=== PATIENT | female | born 1975 | race African-American/Black ===

== ENCOUNTER 2018-12-22 18:34 | Emergency (ER) | payer OTHER ==
[~2018-12-22] VITALS: Ht 165.1 cm; Wt 99.8 kg
--- NOTE | 2018-12-22 19:13 | NUR ---
ED Nurse Note: Patient walked in to ER c/o leftknee pain 12/16. Stated that fell today from tghe chair. AAO x4, VSS at this time, skin is dry warm to touch. Patient presented limping.
[2018-12-22] MEDS ORDERED: Ketorolac 30mg Inj IM ONE (19:15)
--- NOTE | 2018-12-22 19:54 | Emergency Room Report ---
History of Present Illness General Chief Complaint: Lower Extremity Injury Source: Patient Present Illness HPI 43-year-old female with no significant past medical history here complaining of a 10 out of 10 pain in left knee after a fall today. Patient reports that she fell on her left knee. Denies pain radiation. Denies tingling or numbness, has not taken medication for pain. Patient is morbidly obese. Denies calf tenderness, chest pain, shortness of breath, palpitation, and other associated symptoms. Denies other injuries and denies head injury and loss of consciousness. Allergies: Coded Allergies: No Known Allergies (Unverified , 12/22/18) Patient History Past Medical History: see triage record Past Surgical History: unable to obtain Pertinent Family History: none Last Menstrual Period: last month Now: No Immunizations: UTD Reviewed Nursing Documentation: PMH: Agreed; PSxH: Agreed Nursing Documentation-PMH Past Medical History: No Stated History Review of Systems All Other Systems: negative except mentioned in HPI Physical Exam Vital Signs Date Time Temp Pulse Resp B/P (MAP) Pulse Ox O2 Delivery O2 Flow Rate FiO2 12/22/18 18:50 98.8 98 20 111/67 (82) 96 Room Air Sp02 EP Interpretation: reviewed, normal General Appearance: no apparent distress, alert, GCS 15, non-toxic Head: normocephalic, atraumatic Eyes: bilateral eye normal inspection, bilateral eye PERRL ENT: hearing grossly normal, normal pharynx, no angioedema, normal voice Neck: full range of motion, supple/symm/no masses Respiratory: chest non-tender, lungs clear, normal breath sounds, speaking full sentences Cardiovascular #1: regular rate, rhythm, no edema, no murmur Cardiovascular #2: 2+ dorsalis pedis (R), 2+ dorsalis pedis (L) Gastrointestinal: normal inspection, normal bowel sounds Musculoskeletal: back normal, digits/nails normal, gait/station normal, non- tender, no calf tenderness, swelling - Left lateral knee Neurologic: alert, oriented x3, responsive, motor strength/tone normal, sensory intact, speech normal Psychiatric: judgement/insight normal, memory normal, mood/affect normal, no suicidal/homicidal ideation Skin: no rash Lymphatic: no adenopathy Procedures Splinting Splinting : Consent: Verbal Location: Left knee Pre-Made Type: knee immobilizer Pre-Proc Neuro Vasc Exam: normal Post-Proc Neuro Vasc Exam: normal Patient Tolerated: Well Complications: None Medical Decision Making PA Attestation All my diagnosis and treatment plans were reviewed ad discussed with my supervising physician Dr. Garvey Diagnostic Impression: Primary Impression: Left knee sprain ER Course 43-year-old female with no significant past medical history here complaining of a 10 out of 10 pain in left knee after a fall today. Patient reports that she fell on her left knee. Denies pain radiation. Denies tingling or numbness, has not taken medication for pain. Patient is morbidly obese. Denies calf tenderness, chest pain, shortness of breath, palpitation, and other associated symptoms. Denies other injuries and denies head injury and loss of consciousness. Ddx considered but are not limited to: Knee sprain, strain, fracture, contusion , meniscus tear injury Vital signs: are WNL, pt. is afebrile H&PE are most consistent with: Left knee sprain ORDERS: Knee x-ray, ibuprofen, Robaxin ER intervention: Toradol DISCHARGE: At this time pt. is stable for d/c to home. Will provide printed patient care instructions, and any necessary prescriptions. Care plan and follow up instructions have been discussed with the patient prior to discharge. Knee immobilizer was applied for symptom relief patient to follow-up with her primary care provider elevate affected area if worsening symptoms return to emergency room Other X-Ray Diagnostic Results Other X-Ray Diagnostic Results : X-Ray ordered: Left knee # of Views/Limited Vs Complete: 3 View Indication: Pain EP Interpretation: Yes PA Xray: Interpretation reviewed, by supervising MD, and agrees with findings. Interpretation: no dislocation, no soft tissue swelling, no fractures Impression: No acute disease Electronically Signed by: Jez Islas PA-C Last Vital Signs Date Time Temp Pulse Resp B/P (MAP) Pulse Ox O2 Delivery O2 Flow Rate FiO2 12/22/18 18:50 98.8 98 20 111/67 (82) 96 Room Air Disposition: HOME, SELF-CARE Condition: Stable Scripts Methocarbamol* (ROBAXIN*) 500 Mg Tablet 500 MG PO TID, #21 TAB 0 Refills Prov: Jez Wiseman 12/22/18 Ibuprofen (Ibu) 800 Mg Tablet 800 MG PO TID, #30 TAB Prov: Jez Wiseman 12/22/18 Referrals: [facility] (PCP) Patient Instructions: Knee Sprain Additional Instructions: Take medication as directed follow-up with your primary care provider avoid strenuous physical activity Jez Wiseman Dec 22, 2018 19:54
[2018-12-22] MEDS ORDERED: ROBAXIN500 MG PO (19:55)
[2018-12-22] MEDS ORDERED: IBU800 MG PO (19:55)
--- NOTE | 2018-12-22 20:09 | Diagnostic Imaging Report ---
EXAM: XR Left Knee, 3 views CLINICAL HISTORY: TRAUMA TECHNIQUE: Three views of the left knee. COMPARISON: No relevant prior studies available. FINDINGS: Bones/joints: No acute fracture. Trace effusion Soft tissues: No radiodense foreign body. Soft tissue swelling. IMPRESSION: No acute fracture.
[2018-12-22 20:16] VITALS: BP 111/67
--- NOTE | 2018-12-22 20:16 | NUR ---
ED Nurse Note: Pt cleared by health care Provider for discharge. DC instructions/prescription was given and explained to pt and verbalized understanding of teachings. All medical deviecs such as ID band removed. Pt is AAO x4, ambulatory and left with all personal belongings.
== END 2018-12-22 20:16 | disposition home or self-care (01) ==
LOC: EMR 19:15
DX: S83.92XA Sprain of unspecified site of left knee, initial encounter (principal); E66.01 Morbid (severe) obesity due to excess calories; Z68.36 Body mass index [BMI] 36.0-36.9, adult; W18.30XA Fall on same level, unspecified, initial encounter; Y92.9 Unspecified place or not applicable
CPT/HCPCS: 29505; 73562; 96372; 99283; J1885

== ENCOUNTER 2019-07-18 14:49 | Emergency (ER) | payer MEDICAID ==
[~2019-07-18] VITALS: Ht 165.1 cm; Wt 99.8 kg
[~2019-07-18 14:49] MED LIST: IBU800 MG PO; PREDNISONE20 MG ORAL; ROBAXIN-500MG ORAL; ROBAXIN500 MG PO
--- NOTE | 2019-07-18 14:56 | NUR ---
ED Nurse Note: PT walked into ED for C/O an abscess to left breast for a few days. pt reports being painful and tender to touch denies drainage.
[2019-07-18 14:57] VITALS: BP 130/80
[2019-07-18] MEDS ORDERED: Omnipaque-300 100ml vial INJ PRN (15:00)
--- NOTE | 2019-07-18 15:04 | NUR ---
ED Nurse Note: Blood and urine sample sent down to lab
[2019-07-18 15:20] LABS: APPEARANCE,URINE CLEAR; BILIRUBIN, URINE NEGATIVE (NEGATIVE); COLOR,URINE PALE YELLOW; GLUCOSE, URINE (UA) NEGATIVE (NEGATIVE); KETONES,URINE NEGATIVE (NEGATIVE); LEUKOCYTE ESTERASE ,URINE 1+ (NEGATIVE); NITRITE,URINE NEGATIVE (NEGATIVE); PH,URINE 7 (4.5-8.0); PROTEIN,URINE NEGATIVE (NEGATIVE); UROBILINOGEN,URINE NORMAL MG/DL (0.0-1.0)
[2019-07-18 15:28] LABS: ANION GAP 9 mmol/L (5-15); BLOOD UREA NITROGEN 6 mg/dL (7-18); CALCIUM 9.2 MG/DL (8.5-10.1); CARBON DIOXIDE 30 MMOL/L (21-32); CHLORIDE 105 MMOL/L (98-107); CREATININE 0.8 MG/DL (0.55-1.30); POTASSIUM 3.8 MMOL/L (3.5-5.1); SODIUM 144 MMOL/L (136-145)
[2019-07-18 15:32] LABS: INR 0.9 (0.9-1.1)
[2019-07-18 15:33] LABS: ALANINE AMINOTRANSFERASE 21 U/L (12-78); ALBUMIN 3.4 G/DL (3.4-5.0); ALBUMIN/GLOBULIN RATIO 0.7 (1.0-2.7); ALKALINE PHOSPHATASE 91 U/L (46-116); ASPARTATE AMINO TRANSFERASE 16 U/L (15-37); BILIRUBIN,TOTAL 0.2 MG/DL (0.2-1.0)
[2019-07-18 15:35] LABS: BASOPHILS % (AUTO) 1.2 % (0.0-2.0); EOSINOPHILS % (AUTO) 2.5 % (0.0-3.0); HEMOGLOBIN 14.5 G/DL (12.0-16.0); LYMPHOCYTES % (AUTO) 36.7 % (20.0-45.0); MEAN CORPUSCULAR VOLUME 89 FL (80-99); MONOCYTES % (AUTO) 5.6 % (1.0-10.0); NEUTROPHILS % (AUTO) 54.1 % (45.0-75.0); PLATELET COUNT 256 K/UL (150-450); RED BLOOD COUNT 4.94 M/UL (4.20-5.40); RED CELL DISTRIBUTION WIDTH 12.4 % (11.6-14.8); WHITE BLOOD COUNT 7.6 K/UL (4.8-10.8)
--- NOTE | 2019-07-18 15:36 | NUR ---
ED Nurse Note: PT taken to CT of chest via W/C.
--- NOTE | 2019-07-18 15:48 | NUR ---
ED Nurse Note: Back from CT
[2019-07-18] MEDS ORDERED: Ketorolac 30mg Inj ONE (16:26)
[2019-07-18] MEDS ORDERED: Ketorolac 30mg Inj IV ONE (16:30)
--- NOTE | 2019-07-18 16:48 | Diagnostic Imaging Report ---
Clinical Indication: Left breast mass, painful and tender Technique: IV administration nonionic contrast. Spiral acquisition obtained through the chest. Multiplanar reconstructions generated. Total dose length product 474 mGycm. CTDIvol(s) 2, 165, 10 mGy. Dose reduction achieved using automated exposure control Comparison: none Findings: Due to patient's body habitus, the lateral aspect of the left breast is partially excluded from the [id number]. There does appear to be some thickening of the periareolar skin and subcutaneous soft tissues. Per technologist, patient reports that the palpable and painful abnormality is located medially. No definite medial breast abnormality is demonstrated. There are a few asymmetrically prominent lymph nodes in the left axilla. The right breast is grossly unremarkable. The lungs demonstrate mild interstitial septal thickening and diffuse groundglass opacity. No dense consolidation. No effusions. There are a few scattered cystic spaces present bilaterally. No masses or nodules. The heart is enlarged. There is a pericardial effusion which measures up to 15 mm thick. There is also edema of the mediastinal fat. No mediastinal or hilar mass or adenopathy. The included thyroid is unremarkable. The bones are unremarkable. Impression: No definite evidence of left breast abscess. Note, however, that portions of the left breast are excluded from the [id number]. If there is high clinical suspicion for breast abscess, ultrasound should be considered. Cardiomegaly Pericardial effusion Pulmonary interstitial septal thickening and diffuse groundglass opacity. Most likely reflects mild pulmonary edema. However, given evidence of some hyperinflation and cystic spaces, groundglass opacity could also indicate a component of asymmetric perfusion secondary to COPD changes The CT scanner at [facility] is accredited by the [employer] and the scans are performed using protocols designed to limit radiation exposure to as low as reasonably achievable to attain images of sufficient resolution adequate for diagnostic evaluation.
[2019-07-18 16:55] VITALS: BP 122/80
--- NOTE | 2019-07-18 16:56 | NUR ---
ED Nurse Note: PT in bed resting, VSS as documented.
--- NOTE | 2019-07-18 17:23 | Emergency Room Report ---
History of Present Illness General Chief Complaint: Skin Rash/Abscess Source: Patient Present Illness HPI 43-year-old female with no known significant past medical history here complaining of left breast tender to palpation and warm to touch times few days. Patient reports that she has history of recurrent abscesses in the breast. Has not yet had a mammogram done. Denies any fall or injury. Denies any discharge from the nipple, fever and chills. Denies chest pain, shortness of breath, palpitation, headache and dizziness. Is sitting comfortably with stable vital signs. Left breast is warm to touch periareolar and a mobile mass noted. No drainage noted. No retraction of the nipple noted. Allergies: Coded Allergies: No Known Allergies (Unverified , 12/22/18) Patient History Past Medical History: see triage record Past Surgical History: none Pertinent Family History: none Last Menstrual Period: 3-5 Now: No Immunizations: UTD Reviewed Nursing Documentation: PMH: Agreed; PSxH: Agreed Nursing Documentation-PMH Past Medical History: No History, Except For Hx Asthma: Yes Review of Systems All Other Systems: negative except mentioned in HPI Physical Exam Vital Signs Date Time Temp Pulse Resp B/P (MAP) Pulse Ox O2 Delivery O2 Flow Rate FiO2 07/18/19 14:50 98.4 91 20 122/81 (95) 95 Room Air Sp02 EP Interpretation: reviewed, normal General Appearance: no apparent distress, alert, GCS 15, non-toxic Head: normocephalic, atraumatic Eyes: bilateral eye normal inspection, bilateral eye PERRL ENT: hearing grossly normal, normal pharynx, no angioedema, normal voice Neck: full range of motion, supple/symm/no masses Respiratory: chest non-tender, lungs clear, normal breath sounds, no rhonchi, no respiratory distress, no retraction, no wheezing, speaking full sentences Cardiovascular #1: regular rate, rhythm, no edema, no murmur, normal capillary refill Gastrointestinal: non tender, soft, no mass Genitourinary: no CVA tenderness Musculoskeletal: back normal, normal range of motion, gait/station normal, non- tender Neurologic: alert, motor strength/tone normal, oriented x3, sensory intact, responsive, speech normal Psychiatric: judgement/insight normal, memory normal, mood/affect normal, no suicidal/homicidal ideation Skin: other - Left breast warm to touch with mobile mass periareolar Lymphatic: no adenopathy Medical Decision Making PA Attestation All my diagnosis and treatment plans were reviewed ad discussed with my supervising physician Dr. Marquez Diagnostic Impression: Primary Impression: Cellulitis ER Course 43-year-old female with no known significant past medical history here complaining of left breast tender to palpation and warm to touch times few days. Patient reports that she has history of recurrent abscesses in the breast. Has not yet had a mammogram done. Denies any fall or injury. Denies any discharge from the nipple, fever and chills. Denies chest pain, shortness of breath, palpitation, headache and dizziness. Is sitting comfortably with stable vital signs. Left breast is warm to touch periareolar and a mobile mass noted. No drainage noted. No retraction of the nipple noted. Ddx considered but are not limited to : Cellulitis, DVT, superficial infection, abscess Vital signs: are WNL, pt. is afebrile H&PE are most consistent with: Superficial cyst breast, pericardial effusion and cardiomegaly which patient is already aware of ORDERS: CBC, CMP, UA, urine test, CT chest with contrast, Augmentin, Motrin ED INTERVENTIONS: Toradol IM DISCHARGE: At this time pt. is stable for d/c to home. Will provide printed patient care instructions, and any necessary prescriptions. Care plan and follow up instructions have been discussed with the patient prior to discharge. Follow-up with your field agent regarding your cardiomegaly and pericardial effusion. Take medication as directed, you also need to get a mammogram done, if worsening symptoms return to the emergency room CT/MRI/US Diagnostic Results CT/MRI/US Diagnostic Results : Imaging Test Ordered: CT chest with contrast Impression Incidental finding of cardiomegaly and pericardial effusion, superficial cellulitis of the breast noted however no deep abscess or no malignancy Last Vital Signs Date Time Temp Pulse Resp B/P (MAP) Pulse Ox O2 Delivery O2 Flow Rate FiO2 07/18/19 16:55 98.2 80 18 122/80 98 Room Air Status: improved Disposition: HOME, SELF-CARE Condition: Stable Referrals: NON PHYSICIAN (PCP) Patient Instructions: Cellulitis, [id number], Pericardial Effusion Additional Instructions: Follow-up with your field agent regarding your cardiomegaly and pericardial effusion. Take medication as directed, you also need to get a mammogram done, if worsening symptoms return to the emergency room Jez Wiseman Jul 18, 2019 17:23
[2019-07-18] MEDS ORDERED: AUGMENTIN 875-1 EAC1 ORAL (17:29)
[2019-07-18] MEDS ORDERED: IBUPROFEN600 MG ORAL (17:29)
[2019-07-18 17:36] VITALS: BP 118/74
--- NOTE | 2019-07-18 17:36 | NUR ---
ER DISCHARGE NOTE: Patient is cleared to be discharged per ERMD, pt is aox4, on room air, with stable vital signs. pt was given dc and prescription instructions, pt was able to verbalize understanding, pt id band and iv site removed without complications. pt is able to ambulate with steady gait. pt took all belongings.
== END 2019-07-18 17:36 | disposition home or self-care (01) ==
LOC: EMR 15:05
DX: N61.0 Mastitis without abscess (principal); I51.7 Cardiomegaly; I31.3 Pericardial effusion (noninflammatory)
CPT/HCPCS: 36415; 71260; 80053; 81003; 81025; 83605; 84484; 85025; 85610; 85730; 96374; J1885; Q9967; Z7502; 99284

== ENCOUNTER 2019-09-01 20:00 | Emergency (ER) | payer MEDICAID, OTHER ==
[~2019-09-01] VITALS: Ht 165.1 cm; Wt 90.7 kg
[~2019-09-01 20:00] MED LIST changes: +AUGMENTIN 875-1 EAC1 ORAL; +IBUPROFEN600 MG ORAL
[2019-09-01 20:09] VITALS: BP 108/77
--- NOTE | 2019-09-01 20:09 | NUR ---
ED Nurse Note: Walk-in patient with complaints of recent fall, yesterday. With complaints of dizziness, today. Patient reports left hip and knee pain. Patient presents with abrasions to left knee, with dry dressing attached and no active bleeding from 2-3 lesions. Will continue to monitor.
[2019-09-01] MEDS ORDERED: Tetanus/Diptheria/Pertussis IM ONE ×2 (20:15→20:25)
[2019-09-01] MEDS ORDERED: Acetaminophen 500mg (ES) tab ORAL ONE (20:15)
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
--- NOTE | 2019-09-01 20:46 | NUR ---
ED Nurse Note: Patient tolerated medication administration well. Xray is complete. will continue to monitor for results, addtional imaging and discharge.
--- NOTE | 2019-09-01 20:48 | Diagnostic Imaging Report ---
EXAM: XR Left Hip With Pelvis When Performed, 1 View CLINICAL HISTORY: TRAUMA TECHNIQUE: Frontal view of the left hip with pelvis when performed. COMPARISON: No relevant prior studies available. FINDINGS: Bones/joints: No displaced acute osseous abnormality identified on single projection left hip radiograph. Possibly artifactual subtle curvilinear lucency through the superior aspect of the left greater trochanter, which could be due to superimposed soft tissue artifact. Nondisplaced fracture cannot be definitively excluded. If there is persistent concern for left hip traumatic injury, consider additional planes of imaging or CT. Probable acetabular over coverage of the femoral head, which could be incidental or could be seen with pincer-type KENNEDI in the proper clinical context. ASIS enthesophyte. No dislocation. Soft tissues: Unremarkable. Other findings: Likely ASVD. IMPRESSION: 1. Possibly artifactual subtle curvilinear lucency through the superior aspect of the left greater trochanter, which could be due to superimposed soft tissue artifact. Nondisplaced fracture cannot be definitively excluded. 2. No displaced acute osseous abnormality identified on single projection left hip radiograph. 3. If there is persistent concern for left hip traumatic injury, consider additional dedicated imaging or CT. 4. Probable acetabular over coverage of the femoral head, which could be incidental or could be seen with pincer-type KENNEDI in the proper clinical context. 5. Likely ASVD.
--- NOTE | 2019-09-01 20:50 | Diagnostic Imaging Report ---
EXAM: XR Left Knee, 3 Views CLINICAL HISTORY: TRAUMA TECHNIQUE: Three views of the left knee. COMPARISON: 12/22/18 FINDINGS: Bones/joints: No acute osseous abnormality definitively seen. No knee joint effusion. No dislocation. Soft tissues: Prepatellar soft tissue thickening, which could represent soft tissue injury. Consider prepatellar bursitis. Subcutaneous soft tissue edema along the lateral aspect leg and knee could represent contusion. IMPRESSION: 1. No acute osseous abnormality definitively seen. 2. Prepatellar soft tissue thickening, which could represent soft tissue injury. Consider prepatellar bursitis. 3. No knee joint effusion. 4. Subcutaneous soft tissue edema along the lateral aspect leg and knee could represent contusion.
--- NOTE | 2019-09-01 21:16 | NUR ---
ED Nurse Note: Wound cleaned at left knee and dry dressing applied with gauze and tegaderm. Will continue to monitor for imaging and discharge.
--- NOTE | 2019-09-01 22:10 | NUR ---
ED Nurse Note: Patient going down for CT accompanied by limited radiology technician.
--- NOTE | 2019-09-01 22:18 | NUR ---
ED Nurse Note: Patient returned from CT along with engineering technical writer without complication. Will monitor for imaging results and discharge.
--- NOTE | 2019-09-01 22:33 | Diagnostic Imaging Report ---
EXAM: CT Head Without Intravenous Contrast CLINICAL HISTORY: TRAUMA TECHNIQUE: Axial computed tomography images of the head/brain without intravenous contrast. CTDI is 53.4 mGy and DLP is 1027.7 mGy-cm. One or more of the following dose reduction techniques were used: automated exposure control, adjustment of the mA and/or kV according to patient size, use of iterative reconstruction technique. COMPARISON: No relevant prior studies available. FINDINGS: Brain: Calcifications in the basal ganglia. No hemorrhage. No significant white matter disease. Ventricles: Unremarkable. Bones/joints: Fracture of the left medial orbital wall. It is unclear if the fracture is acute, chronic, or acute on chronic. There is some medial displacement of the orbital fat at the fracture site. Mild contour irregularity is noted of the left medial rectus muscle. Soft tissues: Unremarkable. Sinuses: Areas of mild mucosal thickening in the paranasal sinuses. Mastoid air cells: Unremarkable as visualized. No mastoid effusion. IMPRESSION: Fracture of the left medial orbital wall. It is unclear if the fracture is acute, chronic, or acute on chronic. There is some medial displacement of the orbital fat at the fracture site. Mild contour irregularity is noted of the left medial rectus muscle.
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
[2019-09-01 22:45] VITALS: BP 108/77
--- NOTE | 2019-09-01 22:45 | NUR ---
ER DISCHARGE NOTE: Patient is cleared to be discharged per ERMD,who is at bedside. patient is aox4, on room air, with stable vital signs. patient was given dc nstructions, pt was able to verbalize understanding, pt id band removed. pt is able to ambulate with steady gait. pt took all belongings.
== END 2019-09-01 22:45 | disposition home or self-care (01) ==
LOC: EMR 20:17
DX: S09.90XA Unspecified injury of head, initial encounter (principal); S80.212A Abrasion, left knee, initial encounter; S70.212A Abrasion, left hip, initial encounter; W19.XXXA Unspecified fall, initial encounter; Y92.9 Unspecified place or not applicable; S02.832A Fracture of medial orbital wall, left side, initial encounter for closed fracture; R60.0 Localized edema; Z23 Encounter for immunization
CPT/HCPCS: 70450; 73500; 73562; 90471; 90715; Z7502; 99284

== ENCOUNTER 2019-11-05 20:45 | Inpatient (IN) | payer MEDICAID ==
[~2019-11-05] VITALS: Ht 165.1 cm; Wt 90.7 kg
[2019-11-05 21:05] VITALS: BP 154/98
--- NOTE | 2019-11-05 21:09 | NUR ---
ED Nurse Note: Patient walked into the ED with complaints of bump on left rib area for 3 days. Patient reports a pain level of 7/10. Per patient she doesnt know the cause of the bump. Denies any chest pain/ injury and sob/. Denies any flu like symptoms. Patient is AAOx4 and ambulatory
--- NOTE | 2019-11-05 21:13 | NUR ---
ED Nurse Note: ERMD at bedside
--- NOTE | 2019-11-05 21:24 | Emergency Room Report ---
History of Present Illness General Chief Complaint: Skin Rash/Abscess Source: Patient (Vineet Rhodes MD) Present Illness HPI 44-year-old female presents after increased left-sided abdominal pain. Patient reports having pain to the left side of her abdominal wall. Pain is worse with movement. Denies any fever. Had recent negative coronavirus testing performed. Patient works at a [place] [employer] facility. Denies any vomiting or diarrhea. 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: No (Vineet Rhodes MD) Patient History Last Menstrual Period: 10/17/19 Now: No : 2 Para: 1 Reviewed Nursing Documentation: PMH: Agreed; PSxH: Agreed (Vineet Rhodes MD) Nursing Documentation-PMH Hx Asthma: Yes (Vineet Rhodes MD) Review of Systems All Other Systems: negative except mentioned in HPI (Vineet Rhodes MD) Physical Exam Vital Signs Date Time Temp Pulse Resp B/P (MAP) Pulse Ox O2 Delivery O2 Flow Rate FiO2 11/05/19 20:56 98.1 90 18 154/115 (128) 95 Room Air Sp02 EP Interpretation: reviewed, normal General Appearance: normal inspection, well appearing, no apparent distress, alert, GCS 15 Head: atraumatic ENT: normal ENT inspection, hearing grossly normal, normal voice Neck: normal inspection, full range of motion, supple, no bony tend Respiratory: normal inspection, lungs clear, normal breath sounds, no respiratory distress, no retraction, no wheezing Cardiovascular #1: regular rate, rhythm, no edema Gastrointestinal: normal inspection, normal bowel sounds, non tender, soft, no guarding, no hernia Genitourinary: no CVA tenderness Musculoskeletal: normal inspection, back normal, normal range of motion Neurologic: alert, motor strength/tone normal, blanket folder III-XII nml as tested, oriented x3, responsive, speech normal, normal inspection Psychiatric: normal inspection, judgement/insight normal, mood/affect normal Skin: no rash, other - tenderness to left upper abdominal wall. (Vineet Rhodes MD) Medical Decision Making Diagnostic Impression: Primary Impression: Pericardial effusion Additional Impression: Urinary tract infection Qualified Codes: N39.0 - Urinary tract infection, site not specified ER Course Patient presented for left-sided abdominal discomfort. Differential diagnosis include was not limited to lipoma, abscess, pyelonephritis among others. Because of complexity of patient's case laboratory tests and imaging studies were ordered. Patient's imaging patient's urinalysis did show some evidence of urinary infection. CT imaging of the abdomen pelvis was ordered to the patient' s pain to rule out for abscess. CT imaging read by radiology showed moderate to large pericardial effusion which is apparently somewhat symptomatic with exertion. Patient was endorsed to Dr. Gonzalez laboratory pending testing and final disposition. (Vineet Rhodes MD) ER Course Hospital Course 44 yo F presents with L sided abd pain Patient initially seen and evaluated by Dr. Rhodes; please see his note for full history and physical Clinical course CT abdomen pelvis showed no evidence of soft tissue abnormality at the site of pain however there appeared to be a moderate pericardial effusion I discussed this with the patient. Patient states she has been feeling short of breath for several months now. labs reviewed- no leukocytosis, hb/hct stable, electrolytes ok, trop negative EKG - NSR, no acute ischemic changes inteprretd by me Chest x-ray- cardiomegaly ECHO - pericardial effusion, normal EF No evidence of tamponade. Vitals stable. Case discussed with Dr. Crowell and he agreed to accept the patient to his service for further care and support I. I feel this is a highly complex case requiring extensive working including EKG/Rhythm strip, Xray/CT/US, Blood/urine lab work, repeat exams while in ED, and administration of strong opiates/narcotics for pain control, admission to hospital or close patient follow up. Diagnosis - pericardial effusion, UTI admitted to telemetry in serious condition Labs Test 11/05/19 21:27 11/05/19 22:30 Urine Color Monisha Urine Appearance Slightly cloudy Urine pH 6 (4.5-8.0) Urine Specific [place] 1.020 (1.005-1.035) Urine Protein 1+ (NEGATIVE) Urine Glucose (UA) Negative (NEGATIVE) Urine Ketones 1+ (NEGATIVE) Urine Blood 2+ (NEGATIVE) Urine Nitrite Negative (NEGATIVE) Urine Bilirubin Negative (NEGATIVE) Urine Ictotest Negative (NEGATIVE) Urine Urobilinogen 1 MG/DL (0.0-1.0) Urine Leukocyte Esterase 2+ (NEGATIVE) Urine RBC 2-4 /HPF (0 - 2) Urine WBC 15-20 /HPF (0 - 2) Urine Squamous Epithelial Cells Many /LPF (NONE/OCC) Urine Bacteria Moderate /HPF (NONE) Urine HCG, Qualitative Negative (NEGATIVE) White Blood Count 8.1 K/UL (4.8-10.8) Red Blood Count 5.02 M/UL (4.20-5.40) Hemoglobin 14.9 G/DL (12.0-16.0) Hematocrit 45.9 % (37.0-47.0) Mean Corpuscular Volume 91 FL (80-99) Mean Corpuscular Hemoglobin 29.7 PG (27.0-31.0) Mean Corpuscular Hemoglobin Concent 32.5 G/DL (32.0-36.0) Red Cell Distribution Width 13.4 % (11.6-14.8) Platelet Count 244 K/UL (150-450) Mean Platelet Volume 7.0 FL (6.5-10.1) Neutrophils (%) (Auto) 52.0 % (45.0-75.0) Lymphocytes (%) (Auto) 38.9 % (20.0-45.0) Monocytes (%) (Auto) 5.8 % (1.0-10.0) Eosinophils (%) (Auto) 2.1 % (0.0-3.0) Basophils (%) (Auto) 1.2 % (0.0-2.0) Sodium Level 141 MMOL/L (136-145) Potassium Level 3.5 MMOL/L (3.5-5.1) Chloride Level 106 MMOL/L (98-107) Carbon Dioxide Level 27 MMOL/L (21-32) Anion Gap 9 mmol/L (5-15) Blood Urea Nitrogen 8 mg/dL (7-18) Creatinine 1.0 MG/DL (0.55-1.30) Estimat Glomerular Filtration Rate > 60 mL/min (>60) Glucose Level 99 MG/DL (74-106) Calcium Level 8.7 MG/DL (8.5-10.1) Total Bilirubin 0.2 MG/DL (0.2-1.0) Aspartate Amino Transf (AST/SGOT) 15 U/L (15-37) Alanine Aminotransferase (ALT/SGPT) 15 U/L (12-78) Alkaline Phosphatase 84 U/L (46-116) Troponin I 0.000 ng/mL (0.000-0.056) Pro-B-Type Natriuretic Peptide 97 pg/mL (0-125) Total Protein 8.4 G/DL (6.4-8.2) Albumin 4.0 G/DL (3.4-5.0) Globulin 4.4 g/dL Albumin/Globulin Ratio 0.9 (1.0-2.7) (Piero Gonzalez MD) EKG Diagnostic Results Rate: normal Rhythm: NSR ST Segments: no acute changes ASA given to the pt in ED: No (Piero Gonzalez MD) Rhythm Strip Diag. Results EP Interpretation: yes Rhythm: NSR, no PVC's, no ectopy (Piero Gonzalez MD) Chest X-Ray Diagnostic Results Chest X-Ray Diagnostic Results : Chest X-Ray Ordered: Yes # of Views/Limited/Complete: 1 View Indication: Shortness of Breath EP Interpretation: Yes Interpretation: no consolidation, no effusion, no pneumothorax, no acute cardiopulmonary disease, other - cardiomegaly Impression: No acute disease Electronically Signed by: Electronically signed by Piero Gonzalez MD (Piero Gonzalez MD) CT/MRI/US Diagnostic Results CT/MRI/US Diagnostic Results #1: Imaging Test Ordered: 2D ECHO Impression pericardial effusion. normal ejection fraction CT/MRI/US Diagnostic Results #2: Imaging Test Ordered: CT A/P Impression Procedure: CT Abdomen Pelvis WO Contrast EXAM: CT Abdomen and Pelvis Without Intravenous Contrast CLINICAL HISTORY: PAIN TECHNIQUE: Axial computed tomography images of the abdomen and pelvis without intravenous contrast. CTDI is 12 mGy and DLP is 641 mGy-cm. One or more of the following dose reduction techniques were used: automated exposure control, adjustment of the mA and/or kV according to patient size, use of iterative reconstruction technique. Coronal and sagittal reformatted images were created and reviewed. COMPARISON: No relevant prior studies available. FINDINGS: Lung bases: Unremarkable. No mass. No consolidation. Heart: Moderate-large pericardial effusion. ABDOMEN: Liver: Unremarkable. Gallbladder and bile ducts: Unremarkable. No calcified stones. No ductal dilation. Pancreas: Unremarkable. No ductal dilation. Spleen: Unremarkable. No splenomegaly. Adrenals: Unremarkable. No mass. Kidneys and ureters: Unremarkable. No obstructing stones. No hydronephrosis. Stomach and bowel: Unremarkable. No obstruction. No mucosal thickening. PELVIS: Appendix: No findings to suggest acute appendicitis. Bladder: Unremarkable. No stones. Reproductive: Unremarkable as visualized. ABDOMEN and PELVIS: Intraperitoneal space: Unremarkable. No free air. No significant fluid collection. Bones/joints: No acute fracture. No dislocation. Soft tissues: Unremarkable. Vasculature: Atherosclerotic vascular disease. No abdominal aortic aneurysm. Lymph nodes: Unremarkable. No enlarged lymph nodes. IMPRESSION: 1. No acute abnormality definitively identified to account for patient presentation. 2. Moderate-large pericardial effusion, etiology uncertain. No other findings of volume overload or CHF seen. 3. Otherwise unremarkable study. (Piero Gonzalez MD) Last Vital Signs Date Time Temp Pulse Resp B/P (MAP) Pulse Ox O2 Delivery O2 Flow Rate FiO2 11/05/19 21:05 98.1 82 18 154/98 95 Room Air (Vineet Rhodes MD) Status: improved (Piero Gonzalez MD) Disposition: ADMITTED INPATIENT Condition: Serious Referrals: KEYA DIAZ,REFERRING (PCP) Vineet Rhodes MD Nov 05, 2019 21:24 Piero Gonzalez MD Nov 06, 2019 01:15
[2019-11-05] MEDS ORDERED: Diclofenac 1% Gel 100gm TOPIC ONE (21:30)
[2019-11-05 21:31] LABS: APPEARANCE,URINE SLIGHTLY CLOUDY; BILIRUBIN, URINE NEGATIVE (NEGATIVE); COLOR,URINE AMBER; GLUCOSE, URINE (UA) NEGATIVE (NEGATIVE); KETONES,URINE 1+ (NEGATIVE); LEUKOCYTE ESTERASE ,URINE 2+ (NEGATIVE); NITRITE,URINE NEGATIVE (NEGATIVE); PH,URINE 6 (4.5-8.0); PROTEIN,URINE 1+ (NEGATIVE); UROBILINOGEN,URINE 1 MG/DL (0.0-1.0)
[2019-11-05] MEDS ORDERED: CEPHALEXIN500 MG ORAL ×2 (21:48)
--- NOTE | 2019-11-05 22:07 | Diagnostic Imaging Report ---
EXAM: CT Abdomen and Pelvis Without Intravenous Contrast CLINICAL HISTORY: PAIN TECHNIQUE: Axial computed tomography images of the abdomen and pelvis without intravenous contrast. CTDI is 12 mGy and DLP is 641 mGy-cm. One or more of the following dose reduction techniques were used: automated exposure control, adjustment of the mA and/or kV according to patient size, use of iterative reconstruction technique. Coronal and sagittal reformatted images were created and reviewed. COMPARISON: No relevant prior studies available. FINDINGS: Lung bases: Unremarkable. No mass. No consolidation. Heart: Moderate-large pericardial effusion. ABDOMEN: Liver: Unremarkable. Gallbladder and bile ducts: Unremarkable. No calcified stones. No ductal dilation. Pancreas: Unremarkable. No ductal dilation. Spleen: Unremarkable. No splenomegaly. Adrenals: Unremarkable. No mass. Kidneys and ureters: Unremarkable. No obstructing stones. No hydronephrosis. Stomach and bowel: Unremarkable. No obstruction. No mucosal thickening. PELVIS: Appendix: No findings to suggest acute appendicitis. Bladder: Unremarkable. No stones. Reproductive: Unremarkable as visualized. ABDOMEN and PELVIS: Intraperitoneal space: Unremarkable. No free air. No significant fluid collection. Bones/joints: No acute fracture. No dislocation. Soft tissues: Unremarkable. Vasculature: Atherosclerotic vascular disease. No abdominal aortic aneurysm. Lymph nodes: Unremarkable. No enlarged lymph nodes. IMPRESSION: 1. No acute abnormality definitively identified to account for patient presentation. 2. Moderate-large pericardial effusion, etiology uncertain. No other findings of volume overload or CHF seen. 3. Otherwise unremarkable study.
--- NOTE | 2019-11-05 22:15 | NUR ---
ED Nurse Note: ERMD at bedside explaining to the patient the need to be admitted. Patient agreed to stay in the hospital
--- NOTE | 2019-11-05 22:40 | NUR ---
ED Nurse Note: Blood works sent, EKG and XRAY done.
[2019-11-05 22:41] LABS: BASOPHILS % (AUTO) 1.2 % (0.0-2.0); EOSINOPHILS % (AUTO) 2.1 % (0.0-3.0); HEMATOCRIT 45.9 % (37.0-47.0); HEMOGLOBIN 14.9 G/DL (12.0-16.0); LYMPHOCYTES % (AUTO) 38.9 % (20.0-45.0); MEAN CORPUSCULAR VOLUME 91 FL (80-99); MONOCYTES % (AUTO) 5.8 % (1.0-10.0); PLATELET COUNT 244 K/UL (150-450); RED BLOOD COUNT 5.02 M/UL (4.20-5.40); RED CELL DISTRIBUTION WIDTH 13.4 % (11.6-14.8); WHITE BLOOD COUNT 8.1 K/UL (4.8-10.8)
[2019-11-05 22:57] LABS: ANION GAP 9 mmol/L (5-15); BLOOD UREA NITROGEN 8 mg/dL (7-18); CALCIUM 8.7 MG/DL (8.5-10.1); CARBON DIOXIDE 27 MMOL/L (21-32); CHLORIDE 106 MMOL/L (98-107); POTASSIUM 3.5 MMOL/L (3.5-5.1); SODIUM 141 MMOL/L (136-145)
[2019-11-05 23:00] VITALS: BP 132/82
[2019-11-05 23:03] LABS: ALANINE AMINOTRANSFERASE 15 U/L (12-78); ALBUMIN/GLOBULIN RATIO 0.9 (1.0-2.7); ALKALINE PHOSPHATASE 84 U/L (46-116); ASPARTATE AMINO TRANSFERASE 15 U/L (15-37); BILIRUBIN,TOTAL 0.2 MG/DL (0.2-1.0)
[2019-11-05] MEDS ORDERED: cefTRIAXone 1 GM in NS 55 ML IVPB ONE (23:15)
--- NOTE | 2019-11-05 23:30 | NUR ---
ED Nurse Note: 2D echo at bedside
[2019-11-06 01:00] VITALS: BP 124/76
--- NOTE | 2019-11-06 01:00 | NUR ---
ED Nurse Note: Food and drinks served to the patient
--- NOTE | 2019-11-06 02:35 | NUR ---
ED Nurse Note: Patient is resting on bed, stable vitals as documented.
[2019-11-06 02:41] VITALS: BP 124/72
--- NOTE | 2019-11-06 03:40 | NUR ---
TRANSFER TO FLOOR: Patient transferred to TELE at RM 204-1 via gurney with athletic monitor and accompanied by RN. Patient transported safely to bed. Belongings endorsed to RN on duty.
--- NOTE | 2019-11-06 03:45 | NUR ---
NURSE NOTES: Patient received from SHAYE Horvath from ED. Patient alert, awake, and responsive. AOx4. Ambulatory and continent x2. No signs of sob or acute distress. On room air. IV on RAC, intact and flushed. Admitted in the service of Dr. Richter. Orders noted and will carry out. Call light and belongings placed within reach. Bed in lowest position, brakes engaged. Bed rails raised x2. Oriented to hospital policies. Will continue to monitor.
[2019-11-06] MEDS: Morphine Sulfate 2mg/ml Inj(IV/IM USE ONLY) IVP PRN ×2 (04:41→20:40)
--- NOTE | 2019-11-06 06:49 | History and Physical ---
History of Present Illness General Reason for Hospitalization: Skin Rash/Abscess Present Illness HPI This is a 44yo AAF who reported for SOB. Patient past medical history for asthma. States only able to ambulate 10 steps without feeling SOB. Patient has no sick contacts. 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 Denies fever, chills, weight loss, nausea, vomiting, chest pain. Allergies: Coded Allergies: No Known Allergies (Unverified , 12/22/18) COVID-19 Screening Contact w/high risk pt: No Recent Travel to affected area: No Experienced COVID-19 symptoms?: No Patient History Healthcare decision maker Resuscitation status Advanced Directive on File Review of Systems Constitutional: Reports: see HPI Eye: Denies: blurred vision, double vision ENT: Denies: nose congestion, throat pain, throat swelling Respiratory: Denies: cough Cardiovascular: Denies: chest pain, syncope Gastrointestinal: Denies: abdominal pain, diarrhea, nausea, vomiting Musculoskeletal: Denies: back pain Neurological: Denies: headache Physical Exam General Appearance: WD/WN, alert, overweight Lines, tubes and drains: peripheral HEENT: normocephalic, atraumatic, no JVD Neck: non-tender, supple Respiratory/Chest: chest wall non-tender, no respiratory distress, rhonchi - bilaterally Cardiovascular/Chest: regular rhythm Abdomen: normal bowel sounds, non tender, soft Extremities: normal range of motion 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 normal Last 24 Hour Vital Signs Date Time Temp Pulse Resp B/P (MAP) Pulse Ox O2 Delivery O2 Flow Rate FiO2 11/06/19 05:18 75 11/06/19 04:28 Room Air 11/06/19 04:11 98.0 82 18 132/82 98 Room Air 11/06/19 02:41 98.1 76 18 124/72 98 Room Air 11/06/19 01:00 98.0 76 18 124/76 Room Air 11/05/19 23:00 98.1 78 16 132/82 98 Room Air 11/05/19 21:05 98.1 82 18 154/98 95 Room Air 11/05/19 20:56 98.1 90 18 154/115 (128) 95 Room Air Intake and Output 11/05/19 11/06/19 19:00 07:00 Intake Total 210 ml Balance 210 ml Intake Oral 210 ml Laboratory Tests Test 11/05/19 21:27 11/05/19 22:30 11/06/19 05:32 Urine Color Monisha Urine Appearance Slightly cloudy Urine pH 6 (4.5-8.0) Urine Specific [place] 1.020 (1.005-1.035) Urine Protein 1+ (NEGATIVE) H Urine Glucose (UA) Negative (NEGATIVE) Urine Ketones 1+ (NEGATIVE) H Urine Blood 2+ (NEGATIVE) H Urine Nitrite Negative (NEGATIVE) Urine Bilirubin Negative (NEGATIVE) Urine Ictotest Negative (NEGATIVE) Urine Urobilinogen 1 MG/DL (0.0-1.0) H Urine Leukocyte Esterase 2+ (NEGATIVE) H Urine RBC 2-4 /HPF (0 - 2) H Urine WBC 15-20 /HPF (0 - 2) H Urine Squamous Epithelial Cells Many /LPF (NONE/OCC) H Urine Bacteria Moderate /HPF (NONE) H Urine HCG, Qualitative Negative (NEGATIVE) White Blood Count 8.1 K/UL (4.8-10.8) Red Blood Count 5.02 M/UL (4.20-5.40) Hemoglobin 14.9 G/DL (12.0-16.0) Hematocrit 45.9 % (37.0-47.0) Mean Corpuscular Volume 91 FL (80-99) Mean Corpuscular Hemoglobin 29.7 PG (27.0-31.0) Mean Corpuscular Hemoglobin Concent 32.5 G/DL (32.0-36.0) Red Cell Distribution Width 13.4 % (11.6-14.8) Platelet Count 244 K/UL (150-450) Mean Platelet Volume 7.0 FL (6.5-10.1) Neutrophils (%) (Auto) 52.0 % (45.0-75.0) Lymphocytes (%) (Auto) 38.9 % (20.0-45.0) Monocytes (%) (Auto) 5.8 % (1.0-10.0) Eosinophils (%) (Auto) 2.1 % (0.0-3.0) Basophils (%) (Auto) 1.2 % (0.0-2.0) Sodium Level 141 MMOL/L (136-145) Potassium Level 3.5 MMOL/L (3.5-5.1) Chloride Level 106 MMOL/L (98-107) Carbon Dioxide Level 27 MMOL/L (21-32) Anion Gap 9 mmol/L (5-15) Blood Urea Nitrogen 8 mg/dL (7-18) Creatinine 1.0 MG/DL (0.55-1.30) Estimat Glomerular Filtration Rate > 60 mL/min (>60) Glucose Level 99 MG/DL (74-106) Calcium Level 8.7 MG/DL (8.5-10.1) Total Bilirubin 0.2 MG/DL (0.2-1.0) Aspartate Amino Transf (AST/SGOT) 15 U/L (15-37) Alanine Aminotransferase (ALT/SGPT) 15 U/L (12-78) Alkaline Phosphatase 84 U/L (46-116) Troponin I 0.000 ng/mL (0.000-0.056) Pending Pro-B-Type Natriuretic Peptide 97 pg/mL (0-125) Total Protein 8.4 G/DL (6.4-8.2) H Albumin 4.0 G/DL (3.4-5.0) Globulin 4.4 g/dL Albumin/Globulin Ratio 0.9 (1.0-2.7) L Erythrocyte Sedimentation Rate Pending Prothrombin Time Pending Prothromb Time International Ratio Pending Activated Partial Thromboplast Time Pending Uric Acid Pending C-Reactive Protein, Quantitative Pending Thyroid Stimulating Hormone (TSH) Pending Height (Feet): 5 Height (Inches): 5.00 Weight (Pounds): 200 Medications Current Medications Medications (Trade) Dose Ordered Sig/Tigist Route PRN Reason Start Time Stop Time Status Last Admin Dose Admin Dextrose (Dextrose 50%) 25 ml Q30M PRN IV Hypoglycemia 11/06/19 04:00 02/04/20 03:59 Dextrose (Dextrose 50%) 50 ml Q30M PRN IV Hypoglycemia 11/06/19 04:00 02/04/20 03:59 Docusate Sodium (Colace) 100 mg EVERY 12 HOURS ORAL 11/06/19 09:00 12/06/19 08:59 Morphine Sulfate (Morphine Sulfate) 2 mg Q4H PRN IVP Moderate Pain (Pain Scale 4-6) 11/06/19 04:00 11/13/19 03:59 11/06/19 04:41 Ondansetron HCl (Zofran) 4 mg Q6H PRN IVP Nausea & Vomiting 11/06/19 04:00 12/06/19 03:59 Assessment/Plan Problem List: (1) Pericardial effusion ICD Codes: I31.3 - Pericardial effusion (noninflammatory) SNOMED: 433912315 Assessment/Plan: Will need cardiac evaluation from a TTE. Send MICHOACANO, CRP, ESR, BNP, Uric acid Monitor cardiac vitals Low suspicion for COVID19 Joe Eden D.O. Nov 06, 2019 06:49
--- NOTE | 2019-11-06 07:09 | NUR ---
NURSE NOTES: Received patient and report from SHAYE Jarvis in bed resting, denies any pain. No s/s of respiratory discomfort or SOB noted. IV is intact and patent. Bed is in lowest level, bedside rails up x2, call light is within reach. Will continue with the plan of care.
--- NOTE | 2019-11-06 07:16 | NUR ---
HAND-OFF: Report given to SHAYE [place]. Patient stable. Plan of care endorsed.
[2019-11-06 07:19] LABS: BASOPHILS % (AUTO) 1.1 % (0.0-2.0); EOSINOPHILS % (AUTO) 2.6 % (0.0-3.0); HEMATOCRIT 41.4 % (37.0-47.0); HEMOGLOBIN 13.4 G/DL (12.0-16.0); LYMPHOCYTES % (AUTO) 36.8 % (20.0-45.0); MEAN CORPUSCULAR VOLUME 92 FL (80-99); MONOCYTES % (AUTO) 7.2 % (1.0-10.0); NEUTROPHILS % (AUTO) 52.3 % (45.0-75.0); PLATELET COUNT 212 K/UL (150-450); RED BLOOD COUNT 4.51 M/UL (4.20-5.40); RED CELL DISTRIBUTION WIDTH 12.7 % (11.6-14.8); WHITE BLOOD COUNT 6.5 K/UL (4.8-10.8)
[2019-11-06 07:33] LABS: ANION GAP 11 mmol/L (5-15); BLOOD UREA NITROGEN 9 mg/dL (7-18); CALCIUM 8.2 MG/DL (8.5-10.1); CARBON DIOXIDE 25 MMOL/L (21-32); CHLORIDE 105 MMOL/L (98-107); CREATININE 0.9 MG/DL (0.55-1.30); POTASSIUM 3.6 MMOL/L (3.5-5.1); SODIUM 141 MMOL/L (136-145)
[2019-11-06 08:00] VITALS: BP 144/97
[2019-11-06] MEDS: Docusate 100mg cap ORAL SCH ×2 (08:35→20:39)
--- NOTE | 2019-11-06 08:43 | Diagnostic Imaging Report ---
Indication: Chest pain Technique: One view of the chest Comparison: none Findings: The heart size is borderline enlarged. The lungs pleural spaces are clear. Impression: Borderline cardiomegaly No acute process
--- NOTE | 2019-11-06 10:43 | NUR ---
CASE MANAGEMENT:REVIEW 44 YR OLD FEMALE WALKED INTO ER CC: BUMP ON LEFT SIDE OF STOMACH SI: PERICARDIAL EFFUSION. UTI 98.1 90 18 154/115 95% ON RA ESR+44 IS: IV ROCEPHIN 2DECHO CHEST XRAY CT ABD/PELVIS : ADMITTED TO TELEMETRY PLAN: F/U ON 2DECHO CARDIAC CONSULT PENDING
[2019-11-06] MEDS ORDERED: Albuterol/Ipratropium 3ml neb HHN PRN (11:00)
[2019-11-06 12:00] VITALS: BP 121/80
--- NOTE | 2019-11-06 12:54 | NUR ---
*-* INSURANCE *-* ALL AVAILABLE CLINICALS AND REVIEWS HAVE BEEN FAXED TO: Jennifer DIAZ [phone] Fax Clinicals: [phone] & [employer] Fax Clinicals: [phone] Addendum: 11/07/19 at 0902 by LENIN FIELDS CM Jennifer DIAZ Auth# [id number] - [employer] ext [phone] Daily clinicals go to: [phone] (same info) Addendum: 11/07/19 at 0903 by LENIN FIELDS CM [facility] Ref# [id number]
--- NOTE | 2019-11-06 14:23 | Consultation ---
History of Present Illness General Date patient seen: Nov 06, 2019 Time patient seen: 14:13 Chief Complaint: Skin Rash/Abscess Present Illness HPI This is a 44yo AAF who reported for SOB. Patient past medical history for asthma. States only able to ambulate 10 steps without feeling SOB. Patient has no sick contacts. 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 Denies fever, chills, weight loss, nausea, vomiting, chest pain. Cardiology consulted for pericardial effusion. Allergies: Coded Allergies: No Known Allergies (Unverified , 12/22/18) Patient History Healthcare decision maker Resuscitation status Advanced Directive on File Review of Systems Constitutional: Reports: no symptoms Eye: Reports: no symptoms ENT: Reports: no symptoms Respiratory: Reports: orthopnea, shortness of breath Cardiovascular: Reports: palpitations, syncope Gastrointestinal: Reports: no symptoms Genitourinary: Reports: no symptoms Musculoskeletal: Reports: no symptoms Skin: Reports: no symptoms Psychiatric: Reports: no symptoms Neurological: Reports: no symptoms Endocrine: Reports: no symptoms Hematologic/Lymphatic: Reports: no symptoms Physical Exam General Appearance: no apparent distress, alert Lines, tubes and drains: peripheral HEENT: normocephalic, atraumatic, anicteric Neck: non-tender, normal alignment, supple Respiratory/Chest: chest wall non-tender, lungs clear Cardiovascular/Chest: normal peripheral pulses, normal rate Abdomen: normal bowel sounds, non tender, soft, no organomegaly Extremities: normal range of motion, non-tender, normal inspection, no calf tenderness Skin Exam: normal pigmentation, warm/dry, cyanotic Neurologic: job checker II-XII grossly normal, no motor/sensory deficits Last 24 Hour Vital Signs Date Time Temp Pulse Resp B/P (MAP) Pulse Ox O2 Delivery O2 Flow Rate FiO2 11/06/19 12:00 98.0 67 20 121/80 (94) 100 11/06/19 12:00 67 11/06/19 08:00 97.8 73 20 144/97 (113) 98 11/06/19 08:00 73 11/06/19 05:18 75 11/06/19 04:28 Room Air 11/06/19 04:11 98.0 82 18 132/82 98 Room Air 11/06/19 02:41 98.1 76 18 124/72 98 Room Air 11/06/19 01:00 98.0 76 18 124/76 Room Air 11/05/19 23:00 98.1 78 16 132/82 98 Room Air 11/05/19 21:05 98.1 82 18 154/98 95 Room Air 11/05/19 20:56 98.1 90 18 154/115 (128) 95 Room Air Intake and Output 11/05/19 11/06/19 19:00 07:00 Intake Total 210 ml Balance 210 ml Intake Oral 210 ml Laboratory Tests Test 11/05/19 21:27 11/05/19 22:30 11/06/19 05:32 Urine Color Monisha Urine Appearance Slightly cloudy Urine pH 6 (4.5-8.0) Urine Specific [place] 1.020 (1.005-1.035) Urine Protein 1+ (NEGATIVE) H Urine Glucose (UA) Negative (NEGATIVE) Urine Ketones 1+ (NEGATIVE) H Urine Blood 2+ (NEGATIVE) H Urine Nitrite Negative (NEGATIVE) Urine Bilirubin Negative (NEGATIVE) Urine Ictotest Negative (NEGATIVE) Urine Urobilinogen 1 MG/DL (0.0-1.0) H Urine Leukocyte Esterase 2+ (NEGATIVE) H Urine RBC 2-4 /HPF (0 - 2) H Urine WBC 15-20 /HPF (0 - 2) H Urine Squamous Epithelial Cells Many /LPF (NONE/OCC) H Urine Bacteria Moderate /HPF (NONE) H Urine HCG, Qualitative Negative (NEGATIVE) White Blood Count 8.1 K/UL (4.8-10.8) 6.5 K/UL (4.8-10.8) Red Blood Count 5.02 M/UL (4.20-5.40) 4.51 M/UL (4.20-5.40) Hemoglobin 14.9 G/DL (12.0-16.0) 13.4 G/DL (12.0-16.0) Hematocrit 45.9 % (37.0-47.0) 41.4 % (37.0-47.0) Mean Corpuscular Volume 91 FL (80-99) 92 FL (80-99) Mean Corpuscular Hemoglobin 29.7 PG (27.0-31.0) 29.8 PG (27.0-31.0) Mean Corpuscular Hemoglobin Concent 32.5 G/DL (32.0-36.0) 32.4 G/DL (32.0-36.0) Red Cell Distribution Width 13.4 % (11.6-14.8) 12.7 % (11.6-14.8) Platelet Count 244 K/UL (150-450) 212 K/UL (150-450) Mean Platelet Volume 7.0 FL (6.5-10.1) 7.3 FL (6.5-10.1) Neutrophils (%) (Auto) 52.0 % (45.0-75.0) 52.3 % (45.0-75.0) Lymphocytes (%) (Auto) 38.9 % (20.0-45.0) 36.8 % (20.0-45.0) Monocytes (%) (Auto) 5.8 % (1.0-10.0) 7.2 % (1.0-10.0) Eosinophils (%) (Auto) 2.1 % (0.0-3.0) 2.6 % (0.0-3.0) Basophils (%) (Auto) 1.2 % (0.0-2.0) 1.1 % (0.0-2.0) Sodium Level 141 MMOL/L (136-145) 141 MMOL/L (136-145) Potassium Level 3.5 MMOL/L (3.5-5.1) 3.6 MMOL/L (3.5-5.1) Chloride Level 106 MMOL/L (98-107) 105 MMOL/L (98-107) Carbon Dioxide Level 27 MMOL/L (21-32) 25 MMOL/L (21-32) Anion Gap 9 mmol/L (5-15) 11 mmol/L (5-15) Blood Urea Nitrogen 8 mg/dL (7-18) 9 mg/dL (7-18) Creatinine 1.0 MG/DL (0.55-1.30) 0.9 MG/DL (0.55-1.30) Estimat Glomerular Filtration Rate > 60 mL/min (>60) > 60 mL/min (>60) Glucose Level 99 MG/DL (74-106) 112 MG/DL (74-106) H Calcium Level 8.7 MG/DL (8.5-10.1) 8.2 MG/DL (8.5-10.1) L Total Bilirubin 0.2 MG/DL (0.2-1.0) Aspartate Amino Transf (AST/SGOT) 15 U/L (15-37) Alanine Aminotransferase (ALT/SGPT) 15 U/L (12-78) Alkaline Phosphatase 84 U/L (46-116) Troponin I 0.000 ng/mL (0.000-0.056) 0.000 ng/mL (0.000-0.056) Pro-B-Type Natriuretic Peptide 97 pg/mL (0-125) 60 pg/mL (0-125) Total Protein 8.4 G/DL (6.4-8.2) H Albumin 4.0 G/DL (3.4-5.0) Globulin 4.4 g/dL Albumin/Globulin Ratio 0.9 (1.0-2.7) L Erythrocyte Sedimentation Rate 44 MM/HR (0-20) H Prothrombin Time 10.6 SEC (9.30-11.50) Prothromb Time International Ratio 1.0 (0.9-1.1) Activated Partial Thromboplast Time 26 SEC (23-33) Uric Acid 5.0 MG/DL (2.6-7.2) C-Reactive Protein, Quantitative < 0.4 mg/dL (0.00-0.90) Thyroid Stimulating Hormone (TSH) 2.192 uiU/mL (0.358-3.740) Anti-Nuclear Antibody Screen Pending Microbiology Date/Time Source Procedure Growth Status 11/05/19 21:27 Urine,Clean Catch Urine Culture - Preliminary NO GROWTH AFTER 24 HOURS Resulted Height (Feet): 5 Height (Inches): 5.00 Weight (Pounds): 200 Medications Current Medications Medications (Trade) Dose Ordered Sig/Tigist Route PRN Reason Start Time Stop Time Status Last Admin Dose Admin Albuterol/ Ipratropium (Albuterol/ Ipratropium) 3 ml Q4HRT PRN HHN Shortness of Breath 11/06/19 11:00 11/11/19 10:59 Dextrose (Dextrose 50%) 25 ml Q30M PRN IV Hypoglycemia 11/06/19 04:00 02/04/20 03:59 Dextrose (Dextrose 50%) 50 ml Q30M PRN IV Hypoglycemia 11/06/19 04:00 02/04/20 03:59 Docusate Sodium (Colace) 100 mg EVERY 12 HOURS ORAL 11/06/19 09:00 12/06/19 08:59 11/06/19 08:35 Morphine Sulfate (Morphine Sulfate) 2 mg Q4H PRN IVP Moderate Pain (Pain Scale 4-6) 11/06/19 04:00 11/13/19 03:59 11/06/19 04:41 Ondansetron HCl (Zofran) 4 mg Q6H PRN IVP Nausea & Vomiting 11/06/19 04:00 12/06/19 03:59 Assessment/Plan Status: stable Assessment/Plan: Assessment Shortness of breath Cardiomegaly Pericardial effusion Asthma Plan Echocardiogram reviewed with moderate effusion no tamponde Avoid beta blockers and anti hypertensives IV fluids to increase RV/LV filling Will arrange outpatient pericardiocentesis for diagnostic and therapeutic Follow up labs Pulmonary toilet/physical therapy Markus Morrow MD Nov 06, 2019 14:23
[2019-11-06] MEDS ORDERED: Ipratropium 0.02% Inh Soln 2.5ml UD HHN SCH (14:51)
[2019-11-06] MEDS ORDERED: Ipratropium 0.02% Inh Soln 2.5ml UD HHN PRN (15:00)
--- NOTE | 2019-11-06 15:00 | Consultation ---
DATE OF CONSULTATION: 11/06/2019 PULMONARY CONSULTATION CONSULTING PHYSICIAN: Scott Huynh MD. HISTORY OF PRESENT ILLNESS: This is a 44-year-old female who came to the hospital with shortness of breath. The patient has a history of asthma. She states she has been markedly short of breath. On my questioning, she states that she has a mild mucopurulent discharge and mild dry cough. 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 Currently, she was normoxemic on room air. PAST MEDICAL HISTORY: Notable for asthma. No other known medical illnesses. HOME MEDICATIONS: Reviewed and reconciled in chart. REVIEW OF SYSTEMS: Denies any headaches, hematemesis, melena, or hematochezia. PHYSICAL EXAMINATION: GENERAL: Reveals a 44-year-old female. VITAL SIGNS: O2 saturation 98% on room air, blood pressure 130/80, heart rate 84, respirations . She is afebrile. HEENT: Unremarkable. LUNGS: Clear breath sounds bilaterally. ABDOMEN: Soft. EXTREMITIES: There is no edema. LABORATORY DATA: Lab testing shows normal CBC. ESR is 44. Glucose 112. Chemistries are normal. Coags are negative. Urinalysis shows few pus cells. IMAGING STUDIES: X-ray chest was obtained, which shows mild cardiomegaly. She underwent a CT of the abdomen and pelvis, which showed [id number] pericardial effusion. IMPRESSION: 1. Probable pericarditis versus pericardial effusion, idiopathic. 2. History of asthma. DISCUSSION: Admit to the hospital. Await Cardiology consultation. Currently, she is saturating well on room air. No intervention required for asthma. Broad spectrum antibiotics have been initiated. Suspect she would likely need an echo as well as workup for pericardial effusion. We will follow as equipment operating engineer. Scott Huynh M.D. DR: ROLDAN JOB#: [id number] CC:
[2019-11-06 16:00] VITALS: BP 138/79
[2019-11-06] MEDS ORDERED: cefTRIAXone 1gm/D5W 55ml IVPB SCH ×2 (17:00)
--- NOTE | 2019-11-06 19:15 | NUR ---
NURSE NOTES: Received patient from SHAYE Washington. Patient awake, alert, and responsive. On room air, saturating well. IV site intact and patent; flushed. IV atb currently running at a prescribed rate. No signs of SOB or acute distress. Still complaining of 8/10 pain on abdominal area, will administer pain medication as prescribed. COVID swab not done during the previous shift, will carry out order. Patient on droplet and contact precautions. Bed in lowest position, brakes engaged. Bed rails raised x2. Call light and belongings placed within reach. Will continue to monitor.
--- NOTE | 2019-11-06 19:15 | NUR ---
HAND-OFF: Report given to Matheus CR. Patient is in stable condition.
[2019-11-06 20:00] VITALS: BP 131/72
--- NOTE | 2019-11-06 20:14 | NUR ---
NURSE NOTES: Called MD regarding a change in patient's breathing treatment from nebulizer to MDI due to PUI status. MD called back. Will note and carry out orders.
[2019-11-07] VITALS: BP 128/75
[2019-11-07 04:00] VITALS: BP 143/74
[2019-11-07] MEDS: Morphine Sulfate 2mg/ml Inj(IV/IM USE ONLY) IVP PRN (04:29)
[2019-11-07 05:36] LABS: BASOPHILS % (AUTO) 0.9 % (0.0-2.0); EOSINOPHILS % (AUTO) 3.1 % (0.0-3.0); HEMATOCRIT 41.2 % (37.0-47.0); HEMOGLOBIN 13.2 G/DL (12.0-16.0); LYMPHOCYTES % (AUTO) 45.3 % (20.0-45.0); MEAN CORPUSCULAR VOLUME 93 FL (80-99); MONOCYTES % (AUTO) 5.5 % (1.0-10.0); NEUTROPHILS % (AUTO) 45.2 % (45.0-75.0); PLATELET COUNT 218 K/UL (150-450); RED BLOOD COUNT 4.44 M/UL (4.20-5.40); RED CELL DISTRIBUTION WIDTH 12.6 % (11.6-14.8); WHITE BLOOD COUNT 6.4 K/UL (4.8-10.8)
[2019-11-07 05:54] LABS: ANION GAP 8 mmol/L (5-15); BLOOD UREA NITROGEN 11 mg/dL (7-18); CALCIUM 8.4 MG/DL (8.5-10.1); CARBON DIOXIDE 27 MMOL/L (21-32); CHLORIDE 106 MMOL/L (98-107); CREATININE 0.9 MG/DL (0.55-1.30); POTASSIUM 4.1 MMOL/L (3.5-5.1); SODIUM 140 MMOL/L (136-145)
--- NOTE | 2019-11-07 07:04 | General Progress Note ---
Assessment/Plan Status: stable Assessment/Plan: 44yo AAF w/PMH asthma who presents w/SOB, is only able to ambulate 10 steps without feeling SOB. 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 #SOB #Wheezing #Hx of Asthma -cont in-pt medical care -COVID precautions given pt works in [place] -currently on RA, no accessory muscle usage -ipatropium PRN and scheduled -pulm consulted, recs appreciated -ID consulted, recs appreciated -f/u on COVID PCR #Pericardial Effusion -Monitor cardiac vitals -TTE reviewed -Send MICHOACANO -->pending -CRP negative, BNP normal, Uric acid normal -ESR 44, mildly elevated -d/w cardio, Dr. sheikh, pt will need o/p pericadiocentesis #UTI w/GP organisms -UA consistent w/UTI -afebrile, no leukocytosis -UCx w/GP organisms -CTX for now, f/u final UCx -ID consulted, recs appreciated DVT PPx - lovenox Time spent 37 mins, 29 mins spent on pt counseling, POC, d/w RN, ID on case. Time of note may not reflect time spent. Subjective Allergies: Coded Allergies: No Known Allergies (Unverified , 12/22/18) Subjective No acute events overnight. Pt states breathing improved, no CP, SOB, abd pain at this time. Objective Last 24 Hour Vital Signs Date Time Temp Pulse Resp B/P (MAP) Pulse Ox O2 Delivery O2 Flow Rate FiO2 11/07/19 04:00 97.9 66 16 143/74 (97) 98 11/07/19 04:00 65 11/07/19 00:00 98.6 71 17 128/75 (92) 98 11/07/19 00:00 60 11/06/19 20:00 69 11/06/19 20:00 98.4 66 16 131/72 (91) 98 11/06/19 16:00 97.8 71 20 138/79 (98) 99 11/06/19 16:00 63 11/06/19 12:00 98.0 67 20 121/80 (94) 100 11/06/19 12:00 67 11/06/19 08:00 97.8 73 20 144/97 (113) 98 11/06/19 08:00 73 Intake and Output 11/06/19 11/07/19 19:00 07:00 Intake Total 400 ml 1000 ml Balance 400 ml 1000 ml Intake Oral 400 ml 1000 ml # Voids 3 5 Laboratory Tests 11/07/19 03:50: White Blood Count 6.4, Red Blood Count 4.44, Hemoglobin 13.2, Hematocrit 41.2, Mean Corpuscular Volume 93, Mean Corpuscular Hemoglobin 29.7, Mean Corpuscular Hemoglobin Concent 32.0, Red Cell Distribution Width 12.6, Platelet Count 218, Mean Platelet Volume 7.4, Neutrophils (%) (Auto) 45.2, Lymphocytes (%) (Auto) 45.3H, Monocytes (%) (Auto) 5.5, Eosinophils (%) (Auto) 3.1H, Basophils (%) ( Auto) 0.9, Sodium Level 140, Potassium Level 4.1, Chloride Level 106, Carbon Dioxide Level 27, Anion Gap 8, Blood Urea Nitrogen 11, Creatinine 0.9, Estimat Glomerular Filtration Rate > 60, Glucose Level 96, Calcium Level 8.4L, Troponin I 0.000 Height (Feet): 5 Height (Inches): 5.00 Weight (Pounds): 200 Objective General Appearance: WD/WN, alert, overweight Lines, tubes and drains: peripheral HEENT: normocephalic, atraumatic, no JVD Neck: non-tender, supple Respiratory/Chest: chest wall non-tender, no respiratory distress, no wheezing/ rhonchi, no accessory muscle usage Cardiovascular/Chest: regular rhythm Abdomen: normal bowel sounds, non tender, soft Extremities: normal range of motion 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 Nov 07, 2019 07:04
--- NOTE | 2019-11-07 07:19 | NUR ---
HAND-OFF: Report given to SHAYE Washington. Endorsed change in patient's isolation status. Plan of care endorsed. Patient stable.
--- NOTE | 2019-11-07 07:20 | NUR ---
NURSE NOTES: Received report from SHAYE Jarvis in bed resting, denies any pain. No s/s of respiratory discomfort or SOB noted. IV is intact and patent. Bed is in lowest level, bedside rails up x2, call light is within reach. Will continue with the plan of care.
[2019-11-07 08:00] VITALS: BP 144/88
--- NOTE | 2019-11-07 08:12 | NUR ---
CASE MANAGEMENT:REVIEW 11/07/19 SI: PERICARDIAL EFFUSION. DYSPNEA. UTI SUSPECTED COVID 19 97.9 66 16 143/74 98% ON RA CA-8.4 IS: IV ROCEPHIN Q24 ATROVENT INH BID IV MORPHINE Q4HRS PRN : TELEMETRY STATUS DCP: FROM HOME PLAN: F/U ON PENDING COVID 19
[2019-11-07] MEDS: Docusate 100mg cap ORAL SCH ×2 (08:52→21:00)
[2019-11-07] MEDS: Ipratropium Bromide Inhaler INH SCH ×2 (08:52→17:13)
--- NOTE | 2019-11-07 09:55 | Pulmonology Progress Note ---
Subjective Interval Events: None new Constitutional: Reports: no symptoms HEENT: Repors: no symptoms Respiratory: Reports: dry cough Cardiovascular: Reports: no symptoms Gastrointestinal/Abdominal: Reports: no symptoms Genitourinary: Reports: no symptoms Allergies: Coded Allergies: No Known Allergies (Unverified , 12/22/18) Objective Last 24 Hour Vital Signs Date Time Temp Pulse Resp B/P (MAP) Pulse Ox O2 Delivery O2 Flow Rate FiO2 11/07/19 08:00 62 11/07/19 08:00 97.0 62 18 144/88 (106) 97 11/07/19 04:00 97.9 66 16 143/74 (97) 98 11/07/19 04:00 65 11/07/19 00:00 98.6 71 17 128/75 (92) 98 11/07/19 00:00 60 11/06/19 20:00 69 11/06/19 20:00 98.4 66 16 131/72 (91) 98 11/06/19 16:00 97.8 71 20 138/79 (98) 99 11/06/19 16:00 63 11/06/19 12:00 98.0 67 20 121/80 (94) 100 11/06/19 12:00 67 Intake and Output 11/06/19 11/07/19 19:00 07:00 Intake Total 400 ml 1000 ml Balance 400 ml 1000 ml Intake Oral 400 ml 1000 ml # Voids 3 5 General Appearance: no acute distress HEENT: normocephalic Respiratory: chest wall non-tender, lungs clear Cardiovascular: normal peripheral pulses Abdomen: normal bowel sounds Microbiology Date/Time Source Procedure Growth Status 11/05/19 21:27 Urine,Clean Catch Urine Culture - Final Mixed Gram Positive Organism Complete Laboratory Tests 11/07/19 03:50: White Blood Count 6.4, Red Blood Count 4.44, Hemoglobin 13.2, Hematocrit 41.2, Mean Corpuscular Volume 93, Mean Corpuscular Hemoglobin 29.7, Mean Corpuscular Hemoglobin Concent 32.0, Red Cell Distribution Width 12.6, Platelet Count 218, Mean Platelet Volume 7.4, Neutrophils (%) (Auto) 45.2, Lymphocytes (%) (Auto) 45.3H, Monocytes (%) (Auto) 5.5, Eosinophils (%) (Auto) 3.1H, Basophils (%) ( Auto) 0.9, Sodium Level 140, Potassium Level 4.1, Chloride Level 106, Carbon Dioxide Level 27, Anion Gap 8, Blood Urea Nitrogen 11, Creatinine 0.9, Estimat Glomerular Filtration Rate > 60, Glucose Level 96, Calcium Level 8.4L, Troponin I 0.000 Current Medications Medications (Trade) Dose Ordered Sig/Tigist Route PRN Reason Start Time Stop Time Status Last Admin Dose Admin Ceftriaxone Sodium 1 gm/ Dextrose 55 ml @ 110 mls/hr Q24H IVPB 11/06/19 17:00 11/13/19 16:59 11/06/19 16:19 Dextrose (Dextrose 50%) 25 ml Q30M PRN IV Hypoglycemia 11/06/19 04:00 02/04/20 03:59 Dextrose (Dextrose 50%) 50 ml Q30M PRN IV Hypoglycemia 11/06/19 04:00 02/04/20 03:59 Docusate Sodium (Colace) 100 mg EVERY 12 HOURS ORAL 11/06/19 09:00 12/06/19 08:59 11/07/19 08:52 Enoxaparin Sodium (Lovenox) 40 mg DAILY SUBQ 11/07/19 10:00 02/05/20 09:59 Ipratropium [place] (Atrovent Inh) 1 puffs BID INH 11/07/19 09:00 12/07/19 08:59 11/07/19 08:52 Morphine Sulfate (Morphine Sulfate) 2 mg Q4H PRN IVP Moderate Pain (Pain Scale 4-6) 11/06/19 04:00 11/13/19 03:59 11/07/19 04:29 Ondansetron HCl (Zofran) 4 mg Q6H PRN IVP Nausea & Vomiting 11/06/19 04:00 12/06/19 03:59 Assessment/Plan Assessment/Plan IMPRESSION: 1. Probable pericarditis versus pericardial effusion, idiopathic. 2. History of asthma. DISCUSSION: Reviewed Cardiology consultation. Currently, she is saturating well on room air. No intervention required for asthma. Broad spectrum antibiotics have been initiated. Per cardiology, out pt pericardiocentesis OK to dc Ghada Moore Omar Syed MD Nov 07, 2019 09:55
[2019-11-07] MEDS ORDERED: Enoxaparin 40mg Inj SUBQ SCH (10:00)
--- NOTE | 2019-11-07 11:39 | NUR ---
PT EVALUATION NOTE Patient seen for initial evaluation. Patient demonstrates independence with bed mobility, transfers and ambulation without assistive device. Gait is steady without gait deviations. Patient denied dizziness or SOB during or after ambulation. Skilled inpatient PT intervention not indicated, patient discharged from PT. Padmini CR notified. Addendum: 11/07/19 at 1140 by FREDDIE CHÁVEZ PT Amended: Links added.
[2019-11-07 12:00] VITALS: BP 136/86
--- NOTE | 2019-11-07 14:14 | NUR ---
*-* INSURANCE *-* ALL AVAILABLE CLINICALS AND REVIEWS HAVE BEEN FAXED TO: Jennifer DIAZ Auth# [id number] [facility] ext [phone] Fax Clinicals: [phone] & [employer] Ref# [id number] Fax Clinicals: [phone]
[2019-11-07 16:00] VITALS: BP 133/77
[2019-11-07] MEDS ORDERED: CIPROFLOXACIN500 M2 ORAL (19:18)
[2019-11-07] MEDS ORDERED: AMPICILLIN TRI500 MG ORAL (19:18)
--- NOTE | 2019-11-07 19:23 | NUR ---
HAND-OFF: Report given to Megan CR.Patient is in stable condition.
--- NOTE | 2019-11-07 19:31 | Discharge Summary ---
Discharge Summary Hospital Course Date of Admission Nov 06, 2019 at 03:10 Date of Discharge 11/07/2019 Admitting Diagnosis pericardial effusion/SOB HPI Tiara Mccall is a 44 year old female who was admitted on Nov 06, 2019 at 03:10 for Pericardial Effusion / Sob Hospital Course 44yo AAF w/PMH asthma who presents w/SOB, is only able to ambulate 10 steps without feeling SOB. 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 CT chest revealed pericardial effusion. Cardio consulted, pt currently stable at this time, VSS, afebrile, on room air. Cardio stated for pt to f/u as o/p for o/p pericardiocentesis to obtain fluid studies for diagnosis. Pt was noted to have SOB/wheezing on admission, on day 2 of hospitalization no further wheezing. Pt noted to have UTI, was started on ceftriaxone in hospital for 2 days, ID consulted and pt was switched over to PO cipro and ampicillin for 3 more days. Concern for COVID given pt works in [place], COVID was obtained, however pt afebrile, asymptomatic, for >48 hrs. Pt also notes prior to admission no f/c, cough, SOB, states her temp gets checks at the beginning and end of each shift and was tested negative for COVID last week. Pt to be d/c home in stable condition w/instructions to report to ED if symptoms worsen and to f/u w/PCP and cardiology as o/p. D/c diagnosis: #SOB #Wheezing #Hx of Asthma #Pericardial Effusion #UTI w/GP organisms D/c planning >30 mins. Time of note may not reflect time spent. Discharge Medications New Medications: Ampicillin Trihydrate (Ampicillin Trihydrate) 500 Mg Capsule 500 MG ORAL EVERY 6 HOURS for 3 Days, #12 CAP Ciprofloxacin Hcl* (Ciprofloxacin Hcl*) 500 Mg Tablet 500 MG ORAL EVERY 12 HOURS for 3 Days, #6 TAB Discharge Condition Upon Discharge: stable Discharge Vital Signs Last Vital Signs Date Time Temp Pulse Resp B/P (MAP) Pulse Ox O2 Delivery O2 Flow Rate FiO2 11/07/19 16:00 52 11/07/19 16:00 97.0 18 133/77 (95) 97 11/06/19 04:28 Room Air Discharge Disposition Patient was discharged to home Linda Maldonado M.D. Nov 07, 2019 19:31
[2019-11-07 20:00] VITALS: BP 129/80
--- NOTE | 2019-11-07 20:10 | NUR ---
NURSE NOTES: Discharged patient per MD's order. Discontinued all IV, catheter intact, no bleeding, no redness, skin is intact, no infiltration noted. Placed gauze and tape on site. Patient is in stable condition, removed ID band and discarded appropriate waste receptacle, all belongings accounted for and checked with patient, patient belongings list signed by the patient. Cardiac leads and monitor removed. wrister cleaned and given to karoline Cavanaugh. Patient education given regarding condition and medication to continue at home, patient states, "I understand." Patient understands to notify MD for follow-up and changes in condition. Patient discharged to home. Patient escorted to private vehicle safely with TISSUE PACKER by 20:10.
[2019-11-07] MEDS ORDERED: Ciprofloxacin 500mg tab ORAL SCH (21:00)
--- NOTE | 2019-11-07 21:50 | Cardiology Progress Note ---
Assessment/Plan Status: stable Assessment/Plan Assessment/Plan Status: stable Assessment/Plan: Assessment Shortness of breath Cardiomegaly Pericardial effusion Asthma Plan Echocardiogram reviewed with moderate effusion no tamponde Avoid beta blockers and anti hypertensives IV fluids to increase RV/LV filling Will arrange outpatient pericardiocentesis for diagnostic and therapeutic Follow up labs Subjective Cardiovascular: Reports: no symptoms Respiratory: Reports: no symptoms Gastrointestinal/Abdominal: Reports: no symptoms Genitourinary: Reports: no symptoms Subjective No acute events COVID pending Remains HDS no SOB no chest pain Objective Last 24 Hour Vital Signs Date Time Temp Pulse Resp B/P (MAP) Pulse Ox O2 Delivery O2 Flow Rate FiO2 11/07/19 20:00 97.2 63 18 129/80 (96) 99 11/07/19 16:00 52 11/07/19 16:00 97.0 52 18 133/77 (95) 97 11/07/19 12:00 63 11/07/19 12:00 97.5 63 20 136/86 (103) 98 11/07/19 08:00 62 11/07/19 08:00 97.0 62 18 144/88 (106) 97 11/07/19 04:00 97.9 66 16 143/74 (97) 98 11/07/19 04:00 65 11/07/19 00:00 98.6 71 17 128/75 (92) 98 11/07/19 00:00 60 General Appearance: no apparent distress, alert EENT: PERRL/EOMI, normal ENT inspection, TMs normal Neck: non-tender, normal alignment, supple, normal inspection, no JVD Rhythm: NSR Cardiovascular: normal peripheral pulses, normal rate Respiratory/Chest: chest wall non-tender, lungs clear, normal breath sounds, no respiratory distress Abdomen: normal bowel sounds, non tender, soft, no organomegaly, no mass Extremities: normal range of motion, non-tender, normal inspection, no calf tenderness, no swelling 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, no motor/sensory deficits Intake and Output 11/06/19 11/07/19 19:00 07:00 Intake Total 400 ml 1000 ml Balance 400 ml 1000 ml Intake Oral 400 ml 1000 ml # Voids 3 5 Laboratory Tests Test 11/07/19 03:50 White Blood Count 6.4 K/UL (4.8-10.8) Red Blood Count 4.44 M/UL (4.20-5.40) Hemoglobin 13.2 G/DL (12.0-16.0) Hematocrit 41.2 % (37.0-47.0) Mean Corpuscular Volume 93 FL (80-99) Mean Corpuscular Hemoglobin 29.7 PG (27.0-31.0) Mean Corpuscular Hemoglobin Concent 32.0 G/DL (32.0-36.0) Red Cell Distribution Width 12.6 % (11.6-14.8) Platelet Count 218 K/UL (150-450) Mean Platelet Volume 7.4 FL (6.5-10.1) Neutrophils (%) (Auto) 45.2 % (45.0-75.0) Lymphocytes (%) (Auto) 45.3 % (20.0-45.0) H Monocytes (%) (Auto) 5.5 % (1.0-10.0) Eosinophils (%) (Auto) 3.1 % (0.0-3.0) H Basophils (%) (Auto) 0.9 % (0.0-2.0) Sodium Level 140 MMOL/L (136-145) Potassium Level 4.1 MMOL/L (3.5-5.1) Chloride Level 106 MMOL/L (98-107) Carbon Dioxide Level 27 MMOL/L (21-32) Anion Gap 8 mmol/L (5-15) Blood Urea Nitrogen 11 mg/dL (7-18) Creatinine 0.9 MG/DL (0.55-1.30) Estimat Glomerular Filtration Rate > 60 mL/min (>60) Glucose Level 96 MG/DL (74-106) Calcium Level 8.4 MG/DL (8.5-10.1) L Troponin I 0.000 ng/mL (0.000-0.056) Microbiology Date/Time Source Procedure Growth Status 11/05/19 21:27 Urine,Clean Catch Urine Culture - Final Mixed Gram Positive Organism Complete FilsoofMarkus MD Nov 07, 2019 21:50
--- NOTE | 2019-11-08 12:13 | NUR ---
*-* INSURANCE *-* UPDATED CLINICALS AND DISCHARGE SUMMARY HAS BEEN FAXED TO: Jennifer DIAZ Auth# [id number] [facility] ext [phone] Fax Clinicals: [phone] & [facility] Ref# [id number] Fax Clinicals: [phone]
== END 2019-11-07 20:10 | disposition home or self-care (01) | DRG 207 ==
LOC: EMR 21:11 → 2E 11-06 03:10 → EDBEDREQ 11-06 03:12
DX: I31.3 Pericardial effusion (noninflammatory) (principal); N39.0 Urinary tract infection, site not specified; J45.909 Unspecified asthma, uncomplicated
CPT/HCPCS: 36415; 71045; 74176; 80048; 80053; 81003; 81025; 83880; 84443; 84484; 84550; 85025; 85610; 85651; 85730; 86039; 86140; 87086; 93005; 93306; 96365; 99285